=== PATIENT | female | born 1990 | race Caucasian/White ===

== ENCOUNTER 2017-02-11 21:34 | Emergency (ER) | payer OTHER ==
[~2017-02-11] VITALS: Ht 182.9 cm; Wt 57.3 kg
[~2017-02-11 21:34] MED LIST: BACTRIM,SEPT1 TABLET PO; IBUPROFEN200 M1 PO; IMPLANON68 MG IL; MOTRIN IB200 MG PO; NAPROSYN500 MG PO; NOHOMEMEDS; ZOFRAN4 MG PO
[2017-02-11 22:25] LABS: MCH 28.1 PG (29.0-34.0); MCHC 33.6 G/DL (30.0-36.0); MCV 83.5 FL (83-99); MEAN PLAT.VOLUME 10.4 uM^3 (9.5-12.4); PLATELET COUNT 241 K/uL (156-360); RBC DIS.WIDTH-CV 12.7 % (11.8-14.6); RBC DIS.WIDTH-SD 38.7 % (39-53); RED BLOOD COUNT 4.67 M/uL (3.80-5.20); WHITE BLOOD COUNT 7.8 K/uL (4.1-10.2)
[2017-02-11 23:55] LABS: ADD MIUA? YES; BILIRUBIN NEGATIVE; BLOOD SMALL; COLOR YELLOW ((YELLOW)); GLUCOSE (STRIP) NEGATIVE; KETONES NEGATIVE; LEUKOCYTES TRACE; NITRITE NEGATIVE; PROTEIN (STRIP) NEGATIVE; SPECIFIC GRAVITY 1.014 (1.000-1.030); UROBILINOGEN 0.2 MG/DL (0.2-1.0)
[2017-02-12] LABS: BACTERIA NONE SEEN /HPF; EPITHELIAL CELLS RARE /HPF; MUCUS TRACE /LPF; RED BLOOD CELLS 0-5 /HPF (0-5); UCUL ADDED? NO; WHITE BLOOD CELLS 0-5 /HPF (0-5)
[2017-02-12] MEDS ORDERED: PERCOCET 5/31 TABLET PO (00:20)
[2017-02-12 00:36] VITALS: BP 128/79
== END 2017-02-12 00:37 | disposition home or self-care (01) ==
LOC: EME 21:34
DX: N83.201 Unspecified ovarian cyst, right side (principal); N93.9 Abnormal uterine and vaginal bleeding, unspecified; R10.2 Pelvic and perineal pain; Z87.891 Personal history of nicotine dependence
CPT/HCPCS: 76856; 81003; 84702; 85027; 99281; 99284

== ENCOUNTER 2017-12-26 18:30 | Emergency (ER) | payer OTHER ==
[~2017-12-26] VITALS: Ht 182.9 cm; Wt 55.8 kg
[~2017-12-26 18:30] MED LIST changes: +PERCOCET 5/31 TABLET PO
[2017-12-26 19:19] LABS: HEMATOCRIT 34.9 % (36.0-46.0); HEMOGLOBIN 12.2 G/DL (11.9-15.5); MCH 29.3 PG (29.0-34.0); MCV 83.7 FL (83-99); PLATELET COUNT 216 K/uL (156-360); RBC DIS.WIDTH-CV 12.9 % (11.8-14.6); RBC DIS.WIDTH-SD 38.9 % (39-53); RED BLOOD COUNT 4.17 M/uL (3.80-5.20); WHITE BLOOD COUNT 6.9 K/uL (4.1-10.2)
[2017-12-26 19:32] LABS: ALBUMIN 3.9 g/dL (3.2-4.8); CHLORIDE 110 mEq/L (99-109); POTASSIUM 3.7 mEq/L (3.7-5.4); SODIUM 138 mEq/L (136-147)
[2017-12-26 19:34] LABS: GLUCOSE 94 mg/dL (70-99)
[2017-12-26 19:35] LABS: TOTAL PROTEIN 6.3 g/dL (6.4-8.3)
[2017-12-26 19:36] LABS: TOTAL BILIRUBIN 0.5 mg/dL (0.0-1.0)
[2017-12-26 19:38] LABS: ALKALINE PHOSPHATASE 54 IU/L (3-129); CREATININE 0.8 mg/dL (0.6-1.3); GFR ESTIMATE (CALCULATED) > 59 mL/min/
[2017-12-26 19:39] LABS: UREA NITROGEN (BUN) 10 mg/dL (9-23)
[2017-12-26 19:40] LABS: AST (GOT) 11 IU/L (2-34)
[2017-12-26 19:41] LABS: ALT (GPT) 7 IU/L (3-49)
[2017-12-26 19:42] LABS: LIPASE 35 U/L (1.0-51.0)
[2017-12-26 19:47] LABS: QUANTITATIVE HCG < 4.0 MIU/ML
[2017-12-26 19:55] LABS: APPEARANCE SL.HAZY ((CLEAR)); BILIRUBIN NEGATIVE; BLOOD NEGATIVE; COLOR YELLOW ((YELLOW)); GLUCOSE (STRIP) NEGATIVE; KETONES NEGATIVE; LEUKOCYTES SMALL; NITRITE NEGATIVE; PROTEIN (STRIP) NEGATIVE; SPECIFIC GRAVITY 1.024 (1.000-1.030)
[2017-12-26 20:03] LABS: BACTERIA RARE /HPF; EPITHELIAL CELLS 1+ /HPF; MUCUS 1+ /LPF; RED BLOOD CELLS 0-5 /HPF (0-5); UCUL ADDED? YES
[2017-12-26] MEDS ORDERED: PERCOCET 5/31 TABLET PO (22:30)
[2017-12-26] MEDS ORDERED: MOTRIN800 MG PO (22:30)
[2017-12-26 22:35] VITALS: BP 130/89
== END 2017-12-26 22:36 | disposition home or self-care (01) ==
LOC: EME 18:30
DX: N83.201 Unspecified ovarian cyst, right side (principal); Z87.891 Personal history of nicotine dependence; Z91.040 Latex allergy status
CPT/HCPCS: 74177; 76856; 80053; 81003; 83690; 84702; 85027; 87086; 99281; 99285; J1885; J7030